=== PATIENT | female | born 1970 | race Caucasian/White ===

== ENCOUNTER 2017-03-27 15:12 | Emergency (ER) | payer OTHER ==
--- NOTE | 2017-03-27 16:34 | DIAGNOSTIC IMAGING REPORT ---
PROCEDURE: CT SINUS/ORBITS/FACIAL BONES W/CONT CLINICAL INDICATION: Right orbital pain and penetrating injury. TECHNIQUE: 100 ml of Isovue 300 injected intravenously and axial images were obtained through the face with coronal reformations. COMPARISON: None. FINDINGS: There is a small amount of air under the right superior palpebra (eyelid). Right orbital globe and ocular lens appear normal. Intraorbital structures (optic nerves, extraocular muscles) appear normal. Left orbital structures are normal. Sinuses and mastoids appear normal. IMPRESSION: 1. There is a small amount of air under the right superior palpebra (eyelid). 2. Otherwise negative CT of the orbits. 2. Findings discussed with RUPINDER Salvador. All CT scans at this facility use dose modulation, iterative reconstruction, and/or weight-based dosing when appropriate to reduce radiation dose to as low as reasonably achievable.
--- NOTE | 2017-03-27 16:36 | ED CLINICAL REPORT ---
Clinical Report - Physicians/Mid Levels [facility] [address] [place] [address] 03/27/2017 15:15 [id number] Time Seen: 15:20 Mar 27 2017. Arrived- By private vehicle. Historian- patient. HISTORY OF PRESENT ILLNESS Chief Complaint: EYE PAIN. This started just prior to arrival, involves the right eye and is characterized as mild. The patient sustained injury. This occurred at home. She has had direct trauma. Not injured from contact lenses. No chemical exposure. Eye pain and redness. No eye burning, photophobia, blurred vision or double vision. ( branch into r. eye at home. Pain/ some bleeding. No prior eye injury.). REVIEW OF SYSTEMS No sore throat. All systems otherwise negative, except as recorded above. PAST HISTORY See nurses notes. No history of prior eye injury or diabetes mellitus. She does not wear contact lenses. SOCIAL HISTORY No drug use. ADDITIONAL NOTES The nursing notes have been reviewed. PHYSICAL EXAM Vital Signs: 03/27/2017 15:24 BP: 124/62. HR: 61. RR: 18. O2 saturation: 100%. Temp: 97.3 F. HEENT: Ears normal. Nose normal. Pharynx normal. Head appears normal to external inspection. No tenderness to palpation/percussion over the sinuses. Rt Eye: Conjunctival edema. Medium sized subconjunctival hemorrhage. Conjunctival injury: mild swelling and medium sized subconjunctival hematoma localized to the medial and inferior aspect of the conjunctiva. No laceration. Pupil regular. Pupil not constricted. No hyphema, retinal hemorrhages, conjunctival foreign body or injury to the sclera. No corneal foreign body or abrasion or fluorescein dye uptake. No cells present in the anterior chamber. No papilledema. No other corneal abnormality. Eyes: Visual acuity noted- see nurse's notes. Corneas examined with fluorescein stain. Pupils equal, round and reactive to light. Funduscopic exam normal. EOMs intact. Anterior chambers clear. Lt Eye: Left eye exam normal. CVS: Normal heart rate and rhythm. Heart sounds normal. Respiratory: No respiratory distress. Breath sounds normal. Skin: No rash. Neuro: Oriented X 3. Mood/affect normal. No motor deficit. No sensory deficit. LABS, X-RAYS, AND EKG Note - Tests: (Ct facial w/ contrast: IMPRESSION: 1. There is a small amount of air under the right superior palpebra (eyelid). 2. Otherwise negative CT of the orbits. 2. Findings discussed with RUPINDER Salvador. All CT scans at this facility use dose modulation, iterative reconstruction, and/or weight-based dosing when appropriate to reduce radiation dose to as low as reasonably achievable. Electronically Final signed by:Pilo Perez MD 03/27/2017 4:28:54 PM). PROGRESS AND PROCEDURES Course of Care: : left eye 20/25; right eye 20/25 minus one letter; both eyes 20/25. patient with no vision changes. No signs of major protruding injuries. Patient was signs of subconjunctival hemorrhage from injury. No laceration. Very stable. Fall palpation. No eyelid injury. 03/27/2017 16:44 BP: 109/60. HR: 60. RR: 16. O2 saturation: 100%. Patient is stable. Symptoms better. Patient/family counseled. Disposition: Discharged. Condition: good. CLINICAL IMPRESSION Right subconjunctival hemorrhage Clinical picture does not suggest central retinal artery occlusion. INSTRUCTIONS (only start antibiotics if drainage/ new pain as discussed). Prescription Medications: Polytrim ophthalmic solution: Instill 1 drop into affected eye every 3 hours while awake (max 6 doses per day) for 1 week. Dispense five (5) mL. No refills. Substitution is permissible. OTC Medications: Take OTC medications according to label instructions. Available over the counter. Acetaminophen (available over the counter): take according to label instructions. Tylenol ER 650 mg (available over the counter): take 1 orally every 6 hours for 5 days, as needed for pain. Dispense fifteen (15). No refill. Substitution is permissible. Follow-up with: Nilda Franco MD, Ophthalmology, [facility], [address] [place] [address] - [address], , [place] [address] Follow up Thursday. Call for the next available appointment. (Electronically signed by Diamond Schaefer PDungADorian 03/27/2017 16:46)
--- NOTE | 2017-03-27 16:36 | ED ORDER SUMMARY ---
..... Patient: AIMEE BENJAMIN OrderSheet [facility] VisitID: [id number] [address] [place] [address] 47y, F Registration Date/Time: 03/27/2017 ORDER SHEET Weight: 58.9 kg Allergies: No Known Drug Allergy GENERAL ORDERS: Vitals (15:29 03/27/2017 EKoroleva P.A.-C) (15:30 Andra) Visual Acuity (15:34 03/27/2017 EKoroleva P.A.-C) (15:37 Josseline) CT IAC/PF/Orbit wo Cont Urgent (15:34 03/27/2017 EKoroleva P.A.-C) (Ack 15:47 Gill) (Cancelled: Other15:49 EKoroleva P.A.-C) CT Sinus/Facial Bones w Cont Urgent (15:50 03/27/2017 EKoroleva P.A.-C) (Ack 15:51 Gill) MEDICATION ORDERS: IV FLUIDS: IV Saline Lock (15:50 03/27/2017 EKoroleva P.A.-C) (Ack 15:50 Andra) (15:58 Andra) ORDER SHEET NOTES: [Electronically signed by Casie Puckett (16:46 03/27/2017)] [Electronically signed by Diamond Schaefer P.ADung-C (16:46 03/27/2017)] [Electronically locked/signed by Casie Puckett (16:46 03/27/2017)]
--- NOTE | 2017-03-27 16:36 | ED NURSING NOTES ---
Clinical Report - Nurses [facility] [address] [place] [address] 03/27/2017 15:15 Patient: AIMEE BENJAMIN TRIAGE Triage time 1520. Acuity: LEVEL 2. Chief Complaint: INJURY TO RIGHT EYE. Alert. No acute distress. (anxious, distressed). --15:27 Casie Puckett 15:24 03/27/17. BP: 124/62. HR: 61. RR: 18. O2 saturation: 100%. Temp: 97.3 F. Pain level now 11/04. --15:27 Casie Puckett. Weight: 58.9 kg. Height/Length: 62 inches. BMI: 23.8. --15: Casie Puckett. Medications None. --15: Casie Puckett. Allergies No Known Drug Allergy. --15: Casie Puckett. History Arrived by private vehicle. Historian: patient. Accompanied by family. This occurred just prior to arrival. Mechanism of injury: (twig flew into eye while mowing the lawn). ( Pt holding eye shut, sts it feels better for eye not to move, bleeding and swelling to medial sclera, pt sts she feels alot of pressure). 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 PAST MEDICAL HX: Tetanus status: up-to-date. --15: Casie Puckett. PROBLEMS: Otic Barotrauma. --15: Casie Puckett. Interventions ID band on patient. To treatment room. --15:27 Casie Puckett. PHYSICAL ASSESSMENT Ambulatory to room. GENERAL / NEURO / PSYCH: Alert. Oriented X 4. Appears anxious and in distress. HEENT: Head non-tender. Right conjunctiva: edema, large subconjunctival hematoma and suspected foreign body of the medial aspect of the conjunctiva. Mouth within normal limits upon inspection. Voice within normal limits. No swelling of head. No nasal injury noted. No dental injury noted. Mucous membranes are pink. RESPIRATORY: Respirations not labored. CVS: Capillary refill less than 2 seconds. BACK: No neck or back tenderness. ROM normal to the neck and back. SKIN: Skin is warm and dry. --15:29 Casie Puckett. NURSING PROGRESS NOTES Reassurance given. Call light placed in reach. Bed placed in lowest position. Brakes of bed on. Patient ready for evaluation- chart flagged. --15:29 Casie Puckett VISUAL ACUITY: Visual acuity performed without corrective lenses: left eye 20/25; right eye 20/25 minus one letter; both eyes 20/25. --15:48 Breann Mckeon 15:58 03/27/2017 Site #1 started via IV in the left antecubital space with an 20g angiocath, with aseptic technique and good blood return; one attempt. Blood drawn: rainbow set. Labeled in the presence of the patient and held. Saline lock flushed with 10 mL saline. --15:58 Casie Puckett. DISPOSITION / DISCHARGE Departure time: 1642. Condition at departure: unchanged and stable. No learning barriers present. Discharge instructions provided and reviewed with the patient. Reviewed medication(s). Reviewed referrals. Patient verbalized understanding. Written instructions provided in Italian. The patient was discharged by the physician physician assistant psychiatry. She was discharged home and accompanied by family. She left the Emergency Department ambulatory and via private vehicle. Family member driving. --16:45 Casie Puckett 16:44 03/27/17. BP: 109/60. HR: 60. RR: 16. O2 saturation: 100%. Pain level now 10. --16:45 Casie Puckett 16:45 03/27/2017 Site #1 removed upon discharge. Catheter intact. Pressure dressing applied. --16:45 Casie Puckett. Locked/Released at 03/27/2017 16:46 by Casie Puckett,
--- NOTE | 2017-03-27 16:36 | ED NURSING NOTES ---
Clinical Report - Nurses [facility] [address] [place] [address] 03/27/2017 15:15 Patient: AIMEE BENJAMIN TRIAGE Triage time 1520. Acuity: LEVEL 2. Chief Complaint: INJURY TO RIGHT EYE. Alert. No acute distress. (anxious, distressed). --15:27 Casie Puckett 15:24 03/27/17. BP: 124/62. HR: 61. RR: 18. O2 saturation: 100%. Temp: 97.3 F. Pain level now 11/04. --15:27 Casie Puckett. Weight: 58.9 kg. Height/Length: 62 inches. BMI: 23.8. --15: Casie Puckett. Medications None. --15: Casie Puckett. Allergies No Known Drug Allergy. --15: Casie Puckett. History Arrived by private vehicle. Historian: patient. Accompanied by family. This occurred just prior to arrival. Mechanism of injury: (twig flew into eye while mowing the lawn). ( Pt holding eye shut, sts it feels better for eye not to move, bleeding and swelling to medial sclera, pt sts she feels alot of pressure). 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 PAST MEDICAL HX: Tetanus status: up-to-date. --15: Casie Puckett. PROBLEMS: Otic Barotrauma. --15: Casie Puckett. Interventions ID band on patient. To treatment room. --15:27 Casie uPckett. PHYSICAL ASSESSMENT Ambulatory to room. GENERAL / NEURO / PSYCH: Alert. Oriented X 4. Appears anxious and in distress. HEENT: Head non-tender. Right conjunctiva: edema, large subconjunctival hematoma and suspected foreign body of the medial aspect of the conjunctiva. Mouth within normal limits upon inspection. Voice within normal limits. No swelling of head. No nasal injury noted. No dental injury noted. Mucous membranes are pink. RESPIRATORY: Respirations not labored. CVS: Capillary refill less than 2 seconds. BACK: No neck or back tenderness. ROM normal to the neck and back. SKIN: Skin is warm and dry. --15:29 Casie Puckett. NURSING PROGRESS NOTES Reassurance given. Call light placed in reach. Bed placed in lowest position. Brakes of bed on. Patient ready for evaluation- chart flagged. --15:29 Casie Puckett VISUAL ACUITY: Visual acuity performed without corrective lenses: left eye 20/25; right eye 20/25 minus one letter; both eyes 20/25. --15:48 Breann Mckeon 15:58 03/27/2017 Site #1 started via IV in the left antecubital space with an 20g angiocath, with aseptic technique and good blood return; one attempt. Blood drawn: rainbow set. Labeled in the presence of the patient and held. Saline lock flushed with 10 mL saline. --15:58 Casie Puckett. DISPOSITION / DISCHARGE Departure time: 1642. Condition at departure: unchanged and stable. No learning barriers present. Discharge instructions provided and reviewed with the patient. Reviewed medication(s). Reviewed referrals. Patient verbalized understanding. Written instructions provided in Malay. The patient was discharged by the physician regulatory affairs assistant. She was discharged home and accompanied by family. She left the Emergency Department ambulatory and via private vehicle. Family member driving. --16:45 Casie Puckett 16:44 03/27/17. BP: 109/60. HR: 60. RR: 16. O2 saturation: 100%. Pain level now 10. --16:45 Casie Puckett 16:45 03/27/2017 Site #1 removed upon discharge. Catheter intact. Pressure dressing applied. --16:45 Casie Puckett. Locked/Released at 03/27/2017 16:46 by Casie Puckett,
--- NOTE | 2017-03-27 16:36 | ED ORDER SUMMARY ---
..... Patient: AIMEE BENJAMIN OrderSheet [facility] VisitID: [id number] [address] [place] [address] 47y, F Registration Date/Time: 03/27/2017 ORDER SHEET Weight: 58.9 kg Allergies: No Known Drug Allergy GENERAL ORDERS: Vitals (15:29 03/27/2017 EKoroleva P.A.-C) (15:30 Andra) Visual Acuity (15:34 03/27/2017 EKoroleva P.A.-C) (15:37 Josseline) CT IAC/PF/Orbit wo Cont Urgent (15:34 03/27/2017 EKoroleva P.A.-C) (Ack 15:47 Gill) (Cancelled: Other15:49 EKoroleva P.A.-C) CT Sinus/Facial Bones w Cont Urgent (15:50 03/27/2017 EKoroleva P.A.-C) (Ack 15:51 Gill) MEDICATION ORDERS: IV FLUIDS: IV Saline Lock (15:50 03/27/2017 EKoroleva P.A.-C) (Ack 15:50 Andra) (15:58 Andra) ORDER SHEET NOTES: [Electronically signed by Casie Puckett (16:46 03/27/2017)] [Electronically signed by Diamond Schaefer P.ADung-C (16:46 03/27/2017)] [Electronically locked/signed by Casie Puckett (16:46 03/27/2017)]
--- NOTE | 2017-03-27 16:36 | ED CLINICAL REPORT ---
Clinical Report - Physicians/Mid Levels [facility] [address] [place] [address] 03/27/2017 15:15 [id number] Time Seen: 15:20 Mar 27 2017. Arrived- By private vehicle. Historian- patient. HISTORY OF PRESENT ILLNESS Chief Complaint: EYE PAIN. This started just prior to arrival, involves the right eye and is characterized as mild. The patient sustained injury. This occurred at home. She has had direct trauma. Not injured from contact lenses. No chemical exposure. Eye pain and redness. No eye burning, photophobia, blurred vision or double vision. ( branch into r. eye at home. Pain/ some bleeding. No prior eye injury.). REVIEW OF SYSTEMS No sore throat. All systems otherwise negative, except as recorded above. PAST HISTORY See nurses notes. No history of prior eye injury or diabetes mellitus. She does not wear contact lenses. SOCIAL HISTORY No drug use. ADDITIONAL NOTES The nursing notes have been reviewed. PHYSICAL EXAM Vital Signs: 03/27/2017 15:24 BP: 124/62. HR: 61. RR: 18. O2 saturation: 100%. Temp: 97.3 F. HEENT: Ears normal. Nose normal. Pharynx normal. Head appears normal to external inspection. No tenderness to palpation/percussion over the sinuses. Rt Eye: Conjunctival edema. Medium sized subconjunctival hemorrhage. Conjunctival injury: mild swelling and medium sized subconjunctival hematoma localized to the medial and inferior aspect of the conjunctiva. No laceration. Pupil regular. Pupil not constricted. No hyphema, retinal hemorrhages, conjunctival foreign body or injury to the sclera. No corneal foreign body or abrasion or fluorescein dye uptake. No cells present in the anterior chamber. No papilledema. No other corneal abnormality. Eyes: Visual acuity noted- see nurse's notes. Corneas examined with fluorescein stain. Pupils equal, round and reactive to light. Funduscopic exam normal. EOMs intact. Anterior chambers clear. Lt Eye: Left eye exam normal. CVS: Normal heart rate and rhythm. Heart sounds normal. Respiratory: No respiratory distress. Breath sounds normal. Skin: No rash. Neuro: Oriented X 3. Mood/affect normal. No motor deficit. No sensory deficit. LABS, X-RAYS, AND EKG Note - Tests: (Ct facial w/ contrast: IMPRESSION: 1. There is a small amount of air under the right superior palpebra (eyelid). 2. Otherwise negative CT of the orbits. 2. Findings discussed with RUPINDER Salvador. All CT scans at this facility use dose modulation, iterative reconstruction, and/or weight-based dosing when appropriate to reduce radiation dose to as low as reasonably achievable. Electronically Final signed by:Pilo Perez MD 03/27/2017 4:28:54 PM). PROGRESS AND PROCEDURES Course of Care: : left eye 20/25; right eye 20/25 minus one letter; both eyes 20/25. patient with no vision changes. No signs of major protruding injuries. Patient was signs of subconjunctival hemorrhage from injury. No laceration. Very stable. Fall palpation. No eyelid injury. 03/27/2017 16:44 BP: 109/60. HR: 60. RR: 16. O2 saturation: 100%. Patient is stable. Symptoms better. Patient/family counseled. Disposition: Discharged. Condition: good. CLINICAL IMPRESSION Right subconjunctival hemorrhage Clinical picture does not suggest central retinal artery occlusion. INSTRUCTIONS (only start antibiotics if drainage/ new pain as discussed). Prescription Medications: Polytrim ophthalmic solution: Instill 1 drop into affected eye every 3 hours while awake (max 6 doses per day) for 1 week. Dispense five (5) mL. No refills. Substitution is permissible. OTC Medications: Take OTC medications according to label instructions. Available over the counter. Acetaminophen (available over the counter): take according to label instructions. Tylenol ER 650 mg (available over the counter): take 1 orally every 6 hours for 5 days, as needed for pain. Dispense fifteen (15). No refill. Substitution is permissible. Follow-up with: Nilda Franco MD, Ophthalmology, [facility], [address] [place] [address] - [address], , [place] [address] Follow up Thursday. Call for the next available appointment. (Electronically signed by Diamond Schaefer PDungADorian 03/27/2017 16:46)
--- NOTE | 2017-03-27 16:47 | ED MED RECONCILIATION SUMMARY ---
Patient: AIMEE BENJAMIN Medication Reconciliation Report [facility] VisitID: [id number] [place] [address] 47y, F Registration Date/Time: 03/27/2017 Weight: 58.9 kg Height/Length: 62 in. BMI: 23.8 ALLERGIES: No Known Drug Allergy The patient's Home Medications are listed below: NONE. The source(s) of the original Home Medication information: Not obtained. The following Medications were given to the patient in the Emergency Department: None. The following Medications were prescribed to the patient: Take OTC medications according to label instructions. Available over the counter. -- Diamond Schaefer, P.A.-C Acetaminophen (available over the counter): take according to label instructions. -- Diamond Schaefer, P.A.-C Polytrim ophthalmic solution: Instill 1 drop into affected eye every 3 hours while awake (max 6 doses per day) for 1 week. Dispense five (5) mL. No refills. Substitution is permissible. -- Diamond Schaefer, P.A.-C Tylenol ER 650 mg (available over the counter): take 1 orally every 6 hours for 5 days, as needed for pain. Dispense fifteen (15). No refill. Substitution is permissible. -- Diamond Schaefer, P.A.-C
--- NOTE | 2017-03-27 16:47 | ED DISCHARGE INSTRUCTIONS ---
Patient: AIMEE BENJAMIN General Instructions [facility] VisitID: [id number] [address], [place] [id number] 47y, F Registration Date/Time: 03/27/2017 Right subconjunctival hemorrhage INSTRUCTIONS (only start antibiotics if drainage/ new pain as discussed). Prescription Medications: Polytrim ophthalmic solution: Instill 1 drop into affected eye every 3 hours while awake (max 6 doses per day) for 1 week. Dispense five (5) mL. No refills. Substitution is permissible. OTC Medications: Take OTC medications according to label instructions. Available over the counter. Acetaminophen (available over the counter): take according to label instructions. Tylenol ER 650 mg (available over the counter): take 1 orally every 6 hours for 5 days, as needed for pain. Dispense fifteen (15). No refill. Substitution is permissible. Follow-up with: Nilda Franco MD, Ophthalmology, [facility], [address] [place] [address] [address] [address] Follow up Thursday. Call for the next available appointment. ADDITIONAL INFORMATION Subconjunctival Hemorrhage A subconjunctival hemorrhage is a result of a broken blood vessel in the white portion of the eye. It is usually painless and may be caused by coughing, sneezing or vomiting. An injury to the eye can cause this. It can also be a sign of hypertension (high blood pressure) or a bleeding disorder. Although it can look frightening, the presence of the blood is not serious. The blood will be reabsorbed without treatment within 2-3 weeks. Home Care: You may continue your usual activities. Get Prompt Medical Attention if any of the following occur: Pain in the eye Change in vision The blood does not disappear within three weeks Increasing redness or swelling of the eye Severe headache or dizziness Other signs of bruising or bleeding from other parts of your body You have been given the following additional information: Subconjunctival Hemorrhage (Electronically signed by Diamond Schaefer P.A.-C 03/27/2017 16:46)
--- NOTE | 2017-03-27 16:47 | ED DISCHARGE INSTRUCTIONS ---
Patient: AIMEE BENJAMIN General Instructions [facility] VisitID: [id number] [address], [place] [id number] 47y, F Registration Date/Time: 03/27/2017 Right subconjunctival hemorrhage INSTRUCTIONS (only start antibiotics if drainage/ new pain as discussed). Prescription Medications: Polytrim ophthalmic solution: Instill 1 drop into affected eye every 3 hours while awake (max 6 doses per day) for 1 week. Dispense five (5) mL. No refills. Substitution is permissible. OTC Medications: Take OTC medications according to label instructions. Available over the counter. Acetaminophen (available over the counter): take according to label instructions. Tylenol ER 650 mg (available over the counter): take 1 orally every 6 hours for 5 days, as needed for pain. Dispense fifteen (15). No refill. Substitution is permissible. Follow-up with: Nilda Franco MD, Ophthalmology, [facility], [address] [place] [address] [address] [address] Follow up Thursday. Call for the next available appointment. ADDITIONAL INFORMATION Subconjunctival Hemorrhage A subconjunctival hemorrhage is a result of a broken blood vessel in the white portion of the eye. It is usually painless and may be caused by coughing, sneezing or vomiting. An injury to the eye can cause this. It can also be a sign of hypertension (high blood pressure) or a bleeding disorder. Although it can look frightening, the presence of the blood is not serious. The blood will be reabsorbed without treatment within 2-3 weeks. Home Care: You may continue your usual activities. Get Prompt Medical Attention if any of the following occur: Pain in the eye Change in vision The blood does not disappear within three weeks Increasing redness or swelling of the eye Severe headache or dizziness Other signs of bruising or bleeding from other parts of your body You have been given the following additional information: Subconjunctival Hemorrhage (Electronically signed by Diamond Schaefer P.A.-C 03/27/2017 16:46)
--- NOTE | 2017-03-27 16:47 | ED MAR SUMMARY ---
..... Medication Administration Record [facility] [address], [place] [id number] Patient: AIMEE BENJAMIN Visit ID: [id number] 47y, F Weight: 58.9 kg Height/Length: 62 in BMI: 23.8 ALLERGIES: No Known Drug Allergy
--- NOTE | 2017-03-27 16:47 | ED MED RECONCILIATION SUMMARY ---
Patient: AIMEE BENJAMIN Medication Reconciliation Report [facility] VisitID: [id number] [place] [address] 47y, F Registration Date/Time: 03/27/2017 Weight: 58.9 kg Height/Length: 62 in. BMI: 23.8 ALLERGIES: No Known Drug Allergy The patient's Home Medications are listed below: NONE. The source(s) of the original Home Medication information: Not obtained. The following Medications were given to the patient in the Emergency Department: None. The following Medications were prescribed to the patient: Take OTC medications according to label instructions. Available over the counter. -- Diamond Schaefer, P.A.-C Acetaminophen (available over the counter): take according to label instructions. -- Diamond Schaefer, P.A.-C Polytrim ophthalmic solution: Instill 1 drop into affected eye every 3 hours while awake (max 6 doses per day) for 1 week. Dispense five (5) mL. No refills. Substitution is permissible. -- Diamond Schaefer, P.A.-C Tylenol ER 650 mg (available over the counter): take 1 orally every 6 hours for 5 days, as needed for pain. Dispense fifteen (15). No refill. Substitution is permissible. -- Diamond Schaefer, P.A.-C
--- NOTE | 2017-03-27 16:47 | ED MAR SUMMARY ---
..... Medication Administration Record [facility] [address], [place] [id number] Patient: AIMEE BENJAMIN Visit ID: [id number] 47y, F Weight: 58.9 kg Height/Length: 62 in BMI: 23.8 ALLERGIES: No Known Drug Allergy
== END 2017-03-27 16:42 | disposition home or self-care (01) ==
LOC: ED SRH 15:12
DX: H11.31 Conjunctival hemorrhage, right eye (principal)